=== PATIENT | female | born 1985 | race Caucasian/White ===

== ENCOUNTER 2022-03-10 15:21 | Outpatient (CLI) | payer MEDICAID, SELFPAY | END 2022-03-10 15:22 | disposition home or self-care (01) | LOC: LKVREF 03-12 11:02 | PROVIDERS: PCP Physician Assistant Medical; Visit Provider Nurse Practitioner Family | DX: R30.0 Dysuria (principal); N39.0 Urinary tract infection, site not specified | CPT/HCPCS: 87086; 87186 ==

== ENCOUNTER 2022-09-09 09:26 | Outpatient (CLI) | payer MEDICAID, SELFPAY | END 2022-09-09 09:27 | disposition home or self-care (01) | LOC: NFLDREF 09-11 11:37 | PROVIDERS: PCP Physician Assistant Medical; Referring Provider Physician Assistant Medical; Visit Provider Physician Assistant Medical | DX: I10 Essential (primary) hypertension (principal); E86.0 Dehydration; N92.0 Excessive and frequent menstruation with regular cycle; Z13.6 Encounter for screening for cardiovascular disorders; Z13.29 Encounter for screening for other suspected endocrine disorder | CPT/HCPCS: 80053; 80061; 84443 ==

== ENCOUNTER 2024-03-14 09:09 | Outpatient (CLI) | payer MEDICAID, SELFPAY | END 2024-03-14 09:10 | disposition home or self-care (01) | PROVIDERS: PCP Physician Assistant Medical; Visit Provider Physician Assistant Medical | DX: I10 Essential (primary) hypertension (principal); R73.9 Hyperglycemia, unspecified; F41.1 Generalized anxiety disorder | CPT/HCPCS: 80053; 80061; 84443 ==